=== PATIENT | male | born 1980 | race Caucasian/White ===

== ENCOUNTER 2019-09-18 10:40 | Emergency (ER) | payer OTHER ==
[~2019-09-18] VITALS: Ht 193 cm; Wt 104.3 kg
[~2019-09-18 10:40] MED LIST: DOCU100 PO; HYDACE5 PO; NAPR500 PO; OXYACE5T PO; POTCIT5 PO; RXOXYACE PO
== END 2019-09-18 12:57 | disposition home or self-care (01) ==
LOC: ER 10:40
DX: M25.561 Pain in right knee (principal); G89.29 Other chronic pain; F17.210 Nicotine dependence, cigarettes, uncomplicated
CPT/HCPCS: 73562-RT; 99283-25

== ENCOUNTER 2021-01-17 07:05 | Emergency (ER) | payer OTHER ==
[~2021-01-17] VITALS: Ht 182.9 cm; Wt 104.3 kg
[2021-01-17] MEDS ORDERED: PRED20 PO (08:26)
[2021-01-17] MEDS ORDERED: CYCL10 PO (08:26)
== END 2021-01-17 08:42 | disposition home or self-care (01) ==
LOC: ER 07:05
DX: S16.1XXA Strain of muscle, fascia and tendon at neck level, initial encounter (principal); M47.22 Other spondylosis with radiculopathy, cervical region; M50.121 Cervical disc disorder at C4-C5 level with radiculopathy; F17.200 Nicotine dependence, unspecified, uncomplicated; X58.XXXA Exposure to other specified factors, initial encounter
CPT/HCPCS: 72040; 96372; 99283-25; A9270; J1885

== ENCOUNTER 2022-07-13 16:35 | Emergency (ER) | payer OTHER ==
[~2022-07-13] VITALS: Ht 193 cm; Wt 110.2 kg
[~2022-07-13 16:35] MED LIST changes: +CYCL10 PO; +PRED20 PO
[2022-07-13 18:35] LABS: BASOPHILS ABSOLUTE AUTO 0.07 K/mm3 (0.00-0.23); BASOPHILS PERCENT AUTO 1 % (0-2); EOSINOPHILS ABSOLUTE AUTO 0.19 K/mm3 (0.00-0.68); EOSINOPHILS PERCENT AUTO 2 % (0-6); Hematocrit 40.8 % (37.0-53.0); Hemoglobin 13.4 g/dL (13.5-17.5); IMMATURE GRAN ABSOLUTE AUTO 0.04 K/mm3 (0.00-0.10); IMMATURE GRAN PERCENT AUTO 0 % (0-1); LYMPHOCYTES ABSOLUTE AUTO 2.14 K/mm3 (0.84-5.20); LYMPHOCYTES PERCENT AUTO 17 % (21-46); MONOCYTES ABSOLUTE AUTO 1.02 K/mm3 (0.16-1.47); MONOCYTES PERCENT AUTO 8 % (4-13); Mean Corpuscular HGB 29.7 pg (26.0-34.0); Mean Corpuscular HGB Conc 32.8 g/dL (31.5-36.5); Mean Corpuscular Volume 91 fL (80-100); Mean Platelet Volume 8.5 fL (9.1-12.4); NEUTROPHILS ABSOLUTE AUTO 8.85 K/mm3 (1.96-9.15); NEUTROPHILS PERCENT AUTO 72 % (41-73); Platelet Count 446 K/mm3 (150-400); RDW Coefficient Variation 13.6 % (11.7-14.2); RDW Standard Deviation 45.2 fL (35.1-46.3); Red Blood Cell Count 4.51 M/mm3 (4.30-5.90); White Blood Cell Count 12.31 K/mm3 (4.00-11.30)
[2022-07-13 19:00] LABS: Albumin, Blood 3.5 g/dL (3.4-5.0); Albumin/Globulin Ratio 0.9 (0.8-1.8); Bilirubin, Total 0.7 mg/dL (0.1-1.0); Calcium, Blood 8.7 mg/dL (8.5-10.1); Creatinine, Blood 0.81 mg/dL (0.60-1.20); Globulin, Blood 3.9 g/dL (2.2-4.0); Potassium, Blood 4.1 mmol/L (3.5-5.5); Total Protein, Blood 7.4 g/dL (6.4-8.2)
[2022-07-13] MEDS ORDERED: Bactrim Ds Tab1 EACH PO (22:11)
== END 2022-07-13 22:22 | disposition home or self-care (01) ==
LOC: ER 16:35
PROVIDERS: Student in an Organized Health Care Education/Training Program
DX: L03.115 Cellulitis of right lower limb (principal); Z79.52 Long term (current) use of systemic steroids
CPT/HCPCS: 80053; 83880; 85025; 93005; 93010; 93971; 99284-25; A9270

== ENCOUNTER 2022-10-27 20:53 | Inpatient (IN) | payer OTHER ==
[~2022-10-27] VITALS: Ht 193 cm; Wt 110.5 kg
[~2022-10-27 20:53] MED LIST changes: +Bactrim Ds Tab1 EACH PO
[2022-10-27] MEDS ORDERED: AMOX-CLAV 875-1 EAC5 PO (21:07)
[2022-10-27 21:57] LABS: BASOPHILS ABSOLUTE AUTO 0.06 K/mm3 (0.00-0.23); BASOPHILS PERCENT AUTO 1 % (0-2); EOSINOPHILS ABSOLUTE AUTO 0.05 K/mm3 (0.00-0.68); EOSINOPHILS PERCENT AUTO 1 % (0-6); Hemoglobin 14.2 g/dL (13.5-17.5); IMMATURE GRAN ABSOLUTE AUTO 0.05 K/mm3 (0.00-0.10); IMMATURE GRAN PERCENT AUTO 1 % (0-1); LYMPHOCYTES ABSOLUTE AUTO 1.52 K/mm3 (0.84-5.20); LYMPHOCYTES PERCENT AUTO 14 % (21-46); MONOCYTES PERCENT AUTO 14 % (4-13); Mean Corpuscular HGB 30.1 pg (26.0-34.0); Mean Corpuscular HGB Conc 33.8 g/dL (31.5-36.5); Mean Corpuscular Volume 89 fL (80-100); Mean Platelet Volume 8.9 fL (9.1-12.4); NEUTROPHILS ABSOLUTE AUTO 7.87 K/mm3 (1.96-9.15); NEUTROPHILS PERCENT AUTO 71 % (41-73); Platelet Count 328 K/mm3 (150-400); RDW Coefficient Variation 13.6 % (11.7-14.2); RDW Standard Deviation 44.7 fL (35.1-46.3); Red Blood Cell Count 4.72 M/mm3 (4.30-5.90); White Blood Cell Count 11.05 K/mm3 (4.00-11.30)
[2022-10-27 22:16] LABS: Albumin, Blood 3.3 g/dL (3.4-5.0); Albumin/Globulin Ratio 0.8 (0.8-1.8); Bilirubin, Total 0.3 mg/dL (0.1-1.0); Bun/Creatinine Ratio 13.9 (12.0-20.0); Calcium, Blood 8.7 mg/dL (8.5-10.1); Creatinine, Blood 1.15 mg/dL (0.60-1.20); Globulin, Blood 4.2 g/dL (2.2-4.0); Potassium, Blood 3.9 mmol/L (3.5-5.5); Total Protein, Blood 7.5 g/dL (6.4-8.2)
[2022-10-28 04:18] LABS: BASOPHILS ABSOLUTE AUTO 0.04 K/mm3 (0.00-0.23); BASOPHILS PERCENT AUTO 0 % (0-2); EOSINOPHILS ABSOLUTE AUTO 0.31 K/mm3 (0.00-0.68); EOSINOPHILS PERCENT AUTO 3 % (0-6); Hematocrit 41.6 % (37.0-53.0); Hemoglobin 13.8 g/dL (13.5-17.5); IMMATURE GRAN ABSOLUTE AUTO 0.07 K/mm3 (0.00-0.10); IMMATURE GRAN PERCENT AUTO 1 % (0-1); LYMPHOCYTES ABSOLUTE AUTO 1.05 K/mm3 (0.84-5.20); LYMPHOCYTES PERCENT AUTO 10 % (21-46); MONOCYTES ABSOLUTE AUTO 0.25 K/mm3 (0.16-1.47); MONOCYTES PERCENT AUTO 2 % (4-13); Mean Corpuscular HGB 30.1 pg (26.0-34.0); Mean Corpuscular HGB Conc 33.2 g/dL (31.5-36.5); Mean Corpuscular Volume 91 fL (80-100); NEUTROPHILS ABSOLUTE AUTO 9.34 K/mm3 (1.96-9.15); NEUTROPHILS PERCENT AUTO 84 % (41-73); Platelet Count 345 K/mm3 (150-400); RDW Coefficient Variation 13.7 % (11.7-14.2); Red Blood Cell Count 4.58 M/mm3 (4.30-5.90); White Blood Cell Count 11.06 K/mm3 (4.00-11.30)
[2022-10-28 04:38] LABS: Alanine Aminotransfer (ALT/SGP 50 U/L (12-78); Albumin, Blood 3.2 g/dL (3.4-5.0); Albumin/Globulin Ratio 0.8 (0.8-1.8); Alk Phos 79 U/L (50-136); Anion Gap 6 mmol/L (6-16); Aspartate Aminotrans (AST/SGOT 35 U/L (12-37); Bilirubin, Total 0.3 mg/dL (0.1-1.0); Blood Urea Nitrogen 19 mg/dL (8-24); Bun/Creatinine Ratio 20.3 (12.0-20.0); CO2, Blood 22 mmol/L (21-32); Calcium, Blood 8.5 mg/dL (8.5-10.1); Chloride, Blood 109 mmol/L (98-108); Creatinine, Blood 0.94 mg/dL (0.60-1.20); Globulin, Blood 4.2 g/dL (2.2-4.0); Glomerular Filtration Rate 103 (60-); Glucose, Blood 170 mg/dL (70-99); Potassium, Blood 4.1 mmol/L (3.5-5.5); Sodium, Blood 137 mmol/L (136-145); Total Protein, Blood 7.4 g/dL (6.4-8.2)
--- NOTE | 2022-10-28 05:47 | NUR ---
PT IS A&O4, IND IN THE ROOM, RA, VSS, NO COMPLAINTS OF PAIN, HOURLY ROUNDING AND FIRE IGNITION EDUCATION PROVIDED, CONTINUE POC
[2022-10-28 07:23] VITALS: BP 116/79
[2022-10-28 14:59] VITALS: BP 120/86
--- NOTE | 2022-10-28 17:22 | NUR ---
SHIFT SUMMARY: Pt remains A&O X3 this shift. Denies pain. VSS, afebrile. Receiving IV antibx as ordered. Independent with ADLs. Pt is current smoker, declines need for patch. Educated on ignition risk/ no smoking in hospital. Denies having assistive technology specialist or cigarettes here. Pt does have personal knife locked in his med drawer and agrees to return at discharge. No further needs id or verbalized at this time.
[2022-10-28 20:15] VITALS: BP 120/86
--- NOTE | 2022-10-29 04:21 | NUR ---
POWER BARKER OPERATOR SUMMARY VSS. ALERT AND ORIENTED X 4. IV ANTIBIOTICS INFUSING ORDERED - SEE MAR FOR DETAILS. HAS BEEN RESTING QUIETLY WITH FEW INTERRUPTIONS NOTED. UP AD CHRISTEN. CALL LIGHT IN REACH. WILL CONTINUE TO MONITOR.
--- NOTE | 2022-10-29 04:30 | NUR ---
RECEIVED IGNITION, FIRE, NO SMOKING INFO TEACHING EARLIER IN THE SHIFT PER STAFF.
[2022-10-29 04:52] VITALS: BP 132/84
--- NOTE | 2022-10-29 06:23 | NUR ---
PTOICED C/O PAIN AT IV SITE. NOTED SLIGHT SWELLING. IV DC'D AND PT REFUSED ANOTHER ONE PLACED. CALL LIGHT IN REACH
[2022-10-29 07:41] VITALS: BP 130/76
[2022-10-29] MEDS ORDERED: VISBIOME 112.51 EACH PO (10:42)
--- NOTE | 2022-10-29 11:17 | NUR ---
SHIFT/DISCHARGE SUMMARY: Pt remains A&O x3 this shift. Denies pain, VSS, Resp even nonlabored. Tolerating diet. Independent with ADLs. Decline restart on IV for am IV antibiotics. All discharge instructions reviewed with return verbal understanding. Pt belongings returned from locked drawer. Pt to lobby independently.
== END 2022-10-29 11:14 | disposition home or self-care (01) | DRG 872 ==
LOC: ER 20:53 → MEDS 20:54 → ENPENDDIS 10-29 09:46 → MEDS 10-29 11:14
PROVIDERS: Emergency Medicine; ADMIT Internal Medicine
DX: A41.9 Sepsis, unspecified organism (principal); L03.211 Cellulitis of face; L02.01 Cutaneous abscess of face; F17.210 Nicotine dependence, cigarettes, uncomplicated; Z79.2 Long term (current) use of antibiotics; Z88.1 Allergy status to other antibiotic agents; Z71.6 Tobacco abuse counseling
CPT/HCPCS: 36415; 70487; 71045; 80053; 83605; 84484; 85025; 87040; 93005; 93010; 96361; 96365-59; 96375-59; 99285-25; J0295; J1100; J1650; J1885; J2930; J3370; J7030; J7050; Q9967

== ENCOUNTER 2023-02-24 22:23 | Emergency (ER) | payer OTHER ==
[~2023-02-24] VITALS: Ht 190.5 cm; Wt 104.3 kg
[~2023-02-24 22:23] MED LIST changes: +AMOX-CLAV 875-1 EAC5 PO; +VISBIOME 112.51 EACH PO
[2023-02-25 00:02] LABS: Influenza A, PCR NEGATIVE (NEGATIVE); Influenza B, PCR NEGATIVE (NEGATIVE); Resp Syncytial Virus, PCR NEGATIVE (NEGATIVE)
[2023-02-25 00:05] LABS: SARS-Cov-2 (COVID-19) PCR, MMC POSITIVE (NEGATIVE)
[2023-02-25 00:25] VITALS: BP 142/87
== END 2023-02-25 00:29 | disposition home or self-care (01) ==
LOC: ER 22:23
PROVIDERS: Student in an Organized Health Care Education/Training Program
DX: U07.1 COVID-19 (principal); Z88.1 Allergy status to other antibiotic agents; F17.210 Nicotine dependence, cigarettes, uncomplicated
CPT/HCPCS: 0241U; 96361; 96374; 96375; 99283-25; J0780; J1200; J1885; J7030

== ENCOUNTER 2023-10-21 10:56 | Inpatient (IN) | payer OTHER ==
[~2023-10-21] VITALS: Ht 182.9 cm; Wt 105.5 kg
[~2023-10-21 10:56] MED LIST changes: +AMIODARONE HCL400 M2 PO; +JARDIANCE10 MG PO; +Lisinopril2.5 MG PO; +METO50ER PO; +NICO21TP TOP; +SPIR25 PO; +TORSE20 PO; +XARELTO20 MG PO; +Zithromax250 MG PO
[2023-10-21] MEDS ORDERED: Ketamine HCl 100 MG / ML 5ML Vial IV ONE ×2 (11:05→11:20)
[2023-10-21] MEDS ORDERED: NS 1,000 ML IV SCH ×2 (11:10→11:55)
[2023-10-21] MEDS ORDERED: Magnesium Sulf 2 GM/Water 50ML 50 ML IV ONE (11:10)
[2023-10-21 11:22] LABS: BASOPHILS ABSOLUTE AUTO 0.06 K/mm3 (0.00-0.23); BASOPHILS PERCENT AUTO 0 % (0-2); EOSINOPHILS ABSOLUTE AUTO 0.02 K/mm3 (0.00-0.68); EOSINOPHILS PERCENT AUTO 0 % (0-6); Hematocrit 43.7 % (37.0-53.0); Hemoglobin 14.4 g/dL (13.5-17.5); IMMATURE GRAN ABSOLUTE AUTO 0.14 K/mm3 (0.00-0.10); IMMATURE GRAN PERCENT AUTO 1 % (0-1); LYMPHOCYTES ABSOLUTE AUTO 0.43 K/mm3 (0.84-5.20); LYMPHOCYTES PERCENT AUTO 2 % (21-46); MONOCYTES ABSOLUTE AUTO 0.11 K/mm3 (0.16-1.47); MONOCYTES PERCENT AUTO 1 % (4-13); Mean Corpuscular HGB 30.1 pg (26.0-34.0); Mean Corpuscular Volume 91 fL (80-100); Mean Platelet Volume 10.4 fL (9.1-12.4); NEUTROPHILS ABSOLUTE AUTO 19.42 K/mm3 (1.96-9.15); NEUTROPHILS PERCENT AUTO 96 % (41-73); Platelet Count 240 K/mm3 (150-400); RDW Coefficient Variation 16.2 % (11.7-14.2); RDW Standard Deviation 54.2 fL (35.1-46.3); Red Blood Cell Count 4.79 M/mm3 (4.30-5.90); White Blood Cell Count 20.18 K/mm3 (4.00-11.30)
[2023-10-21 11:39] LABS: Albumin, Blood 2.8 g/dL (3.4-5.0); Bun/Creatinine Ratio 19.2 (12.0-20.0); Calcium, Blood 8.4 mg/dL (8.5-10.1); Creatinine, Blood 1.67 mg/dL (0.60-1.20); Globulin, Blood 2.7 g/dL (2.2-4.0); Potassium, Blood 4.2 mmol/L (3.5-5.5); Total Protein, Blood 5.5 g/dL (6.4-8.2)
[2023-10-21 11:41] LABS: BAND PERCENT MAN 4 % (0-8); BASOPHILS PERCENT MAN 0 % (0-2); EOSINOPHILS PERCENT MAN 0 % (0-6); LYMPHOCYTES PERCENT MAN 1 % (21-46); MONOCYTES PERCENT MAN 1 % (4-13); NEUTROPHILS ABSOLUTE MAN 19.77 K/mm3 (1.96-9.15); SEG NEUTROPHILS PERCENT MAN 94 % (41-73); TOTAL CELLS COUNTED 100
[2023-10-21] MEDS ORDERED: NS 500 ML IV SCH (12:35)
[2023-10-21] MEDS ORDERED: Calcium Gluconate 10% 2,000 MG in NS 50 ML IV ONE (12:40)
[2023-10-21] MEDS ORDERED: Lactated Ringer's 1,000 ML IV ONE (12:40)
[2023-10-21] MEDS ORDERED: CALCIUM GLUC IN NACL, ISO-OSM 100 ML IV ONE (13:20)
[2023-10-21] MEDS ORDERED: Midodrine 5 MG Tab PO SCH (14:00)
[2023-10-21] MEDS ORDERED: Acetaminophen 325 MG TABLET PO PRN (14:05)
[2023-10-21] MEDS ORDERED: Metoprolol Succinate 25 MG TABCR PO SCH (15:00)
[2023-10-21] MEDS ORDERED: Amiodarone HCl200 MG PO (15:32)
[2023-10-21 16:15] VITALS: BP 87/62
[2023-10-21 16:31] VITALS: BP 82/59
--- NOTE | 2023-10-21 17:31 | NUR ---
UPDATE PT ARRIVED TO UNIT FROM ED. PT ABLE TO STAND AND TRANSFER FROM [facility] TO BED. BP SOFT, BUT MAP 71. O2 SATS >90% ON RA. HR SINUS TACH LOW 100'S. PT DENIES ANY PAIN. PT DOES NOT HAVE ANY RECOLLECTION OF CARDIOVERSION IN THE ED. PT FALLING ASLEEP DURING ASSESSMENT. WHEN PT IS ASLEEP HE HAS SNORING RESPIRATIONS AND SATS DROP TO MID 80'S AT TIMES. RT CALLED AND CPAP PLACED ON PT. PT ORIENTED TO ROOM AND UNIT. PT STATES HE HAS NOT BEEN TAKING HIS HOME MEDICATIONS BECAUSE HE WENT TO PRISON AFTER LAST ADMISSION AND THEN HAD TROUBLE FOLLOWING UP WITH PRIMARY CARE. WILL CONTINUE TO MONITOR AND REPORT TO ONCOMING ARTURO
[2023-10-21 20:37] VITALS: BP 87/75
--- NOTE | 2023-10-21 21:42 | NUR ---
PATIENT SLEEPING BUT EASILY AROUSABLE. DENIES ANY WANTS OF NEEDS.
--- NOTE | 2023-10-21 21:46 | NUR ---
PATIENT WITH PAUSES IN RESPIRATORY RATE, HISTORY OF SLEEP APNES, REFUSING TO WEAR CPAP, " I GET TO CLAUSTROPHOBIC' O2 SAT STABLE.
[2023-10-22] VITALS (9 sets, daily range): BP systolic 85–1070; BP diastolic 63–111
[2023-10-22 04:26] LABS: Bun/Creatinine Ratio 25.3 (12.0-20.0); Calcium, Blood 8.3 mg/dL (8.5-10.1); Creatinine, Blood 1.66 mg/dL (0.60-1.20); Potassium, Blood 5.3 mmol/L (3.5-5.5)
[2023-10-22] MEDS ORDERED: Metoprolol Succinate 25 MG TABCR PO SCH (09:00)
--- NOTE | 2023-10-22 09:00 | NUR ---
UPDATE BP SOFT AND MIDODRINE ADMINISTERED PER EMAR. DR. WATTS CALLED AND OK TO GIVE 12.5 OF METOPROLOL TODAY. WILL CONTINUE TO MONITOR CLOSELY
[2023-10-22] MEDS ORDERED: Metoprolol Succinate 25 MG TABCR PO ONE (09:20)
[2023-10-22] MEDS ORDERED: STEGLATRO5 MG PO (10:16)
[2023-10-22] MEDS ORDERED: Rivaroxaban 10 MG Tab PO SCH (13:00)
[2023-10-22] MEDS ORDERED: Empagliflozin 10 MG TAB PO SCH (13:00)
--- NOTE | 2023-10-22 16:29 | NUR ---
SHIFT SUMMARY PT REMAINS ALERT AND ORIENTED. 02 SATS REMAIN ABOVE 90% ON RA. HR REMAINS NSR. BP REMAINS SOFT, BUT MAP REMAINS ABOVE 65. PT ASYMPTOMATIC. PT INDEPENDENT IN THE ROOM. PT DENIES ANY PAIN. WILL CONTINUE TO MONITOR AND REPORT TO ONCOMNIG RN.
--- NOTE | 2023-10-22 21:40 | NUR ---
ASSUMPTION OF CARE Pt resting in hospital bed, oriented x4, calm and cooperative. Spo2 maintained on room air, telemetry shows sinus rhythm with HR 80's, good BP with systolic> 100. Pt denies GI/ issues, requests orange juice which was provided. Pt able to reposition himself in bed, ambulatory with stand by assistance.
[2023-10-23] VITALS (8 sets, daily range): BP systolic 102–155; BP diastolic 73–87
[2023-10-23 04:47] LABS: Hematocrit 38.2 % (37.0-53.0); Hemoglobin 12.7 g/dL (13.5-17.5); Mean Corpuscular HGB 30.3 pg (26.0-34.0); Mean Corpuscular HGB Conc 33.2 g/dL (31.5-36.5); Mean Corpuscular Volume 91 fL (80-100); Mean Platelet Volume 11.5 fL (9.1-12.4); Platelet Count 216 K/mm3 (150-400); RDW Coefficient Variation 16.8 % (11.7-14.2); Red Blood Cell Count 4.19 M/mm3 (4.30-5.90); White Blood Cell Count 36.05 K/mm3 (4.00-11.30)
[2023-10-23 05:13] LABS: Albumin, Blood 2.6 g/dL (3.4-5.0); Albumin/Globulin Ratio 0.8 (0.8-1.8); Bilirubin, Total 0.8 mg/dL (0.1-1.0); Calcium, Blood 8.2 mg/dL (8.5-10.1); Creatinine, Blood 1.37 mg/dL (0.60-1.20); Globulin, Blood 3.2 g/dL (2.2-4.0); Potassium, Blood 4.8 mmol/L (3.5-5.5); Total Protein, Blood 5.8 g/dL (6.4-8.2)
--- NOTE | 2023-10-23 06:02 | NUR ---
SHIFT SUMMARY No acute events over night, pt remains oriented x4, rested well, remains on room air. Telemetry shows sinus rhythm throughout shift, BP's stable with systolics maintaining above 100. Pt denies any GI/ issues, tolerating PO intake.
[2023-10-23] MEDS ORDERED: N-Acetylcysteine 600 MG CAP PO SCH (08:00)
--- NOTE | 2023-10-23 08:10 | NUR ---
ASSUMED CARE / DR WATTS: REPORT RECEIVED FROM ARTURO SPRINGER. ASSUMED CARE OF THIS PT AT APPROX 0700. ON ASSESSMENT, THE PT IS AWAKE, A&O TO ALL. AMBULATORY IN ROOM W/ SBA FOR LINE MANAGEMENT. LS CLEAR T/O, PT ON RA W/ O2 SATS > 95%. MONITOR SHOWS SR W/ HR 70s, BP STABLE W/ MAP > 65, SBP LOW 100s. PT HAS NO GI COMPLAINTS AT THIS TIME. VOIDS URINE W/O DIFFICULTY USING URINAL. SKIN CONDITION OVERALL INTACT, PT REPOSITIONS SELF PRN FOR COMFORT. DR WATTS AT BEDSIDE THIS AM, DISCUSSING POC W/ PT. PLANS FOR ADDITIONAL TESTING TO DETERMINE CAUSE OF INCREASING WBC. IV ABX COVERAGE ORDERED. SEE ORDERS. WILL CONTINUE TO MONITOR & UPDATE NEEDED.
[2023-10-23 09:00] LABS: Source, Urine Clean Catch
[2023-10-23] MEDS ORDERED: CefTRIAXone Sodium 2,000 MG in NS 100 ML IV SCH (09:00)
[2023-10-23] MEDS ORDERED: NS 500 ML IV SCH (09:00)
[2023-10-23 09:07] LABS: Appearance, Urine Clear (Clear); Bilirubin, Urine Neg (Neg); Blood, Urine Neg (Neg); Color, Urine Yellow (P-Yellow); Glucose Qualitative, Urine 3+ (Neg); Ketones, Urine Neg (Neg); Leukocyte Esterase, Urine Neg (Neg); Nitrite, Urine Neg (Neg); Protein, Urine Neg (Neg); Urobilinogen, Urine 1+ (Normal); pH, Urine 6.5 (5.0-8.0)
--- NOTE | 2023-10-23 10:25 | NUR ---
DR WATTS: THIS RN HAS CONTACTED PROVIDER REGARDING ORDERED DOSE OF METOPROLOL THIS AM. CALL TO CONFIRM THAT INCREASED DOSE OF METOPROLOL IS TO BE GIVEN IN ADDITION TO ORDERED DOSE OF MIDODRINE. PROVIDER STS THAT THIS IS CORRECT & THIS RN HAS GIVEN MED PER EMAR AT THIS TIME. VS RECHECKED & BP REMAINS STABLE.
--- NOTE | 2023-10-23 18:09 | NUR ---
SHIFT SUMMARY: NO ACUTE CHANGES SINCE PRIOR UPDATES. PT REMAINS A&O, INDEPENDENT IN ROOM W/ MIN ASSIST PRN FOR LINE MANAGEMENT. LS CLEAR T/O, PT ON RA W/ O2 SATS > 95%. MONITOR SHOWS SR W/ HR 70s, BP STABLE. DENIES GI COMPLAINTS. IS TOLERATING PO INTAKE WELL. VOIDS W/O DIFFICULTY USING URINAL. SKIN CONDITION OVERALL INTACT, PT REPOSITIONS SELF PRN FOR COMFORT. WILL CONTINUE TO MONITOR & REPORT OFF TO ONCOMING RN.
[2023-10-23] MEDS ORDERED: Lactobacil 2-S.Thermo-Bifido 1 1 Cap PO SCH (21:00)
[2023-10-23] MEDS ORDERED: Calcium Carbonate 500 MG Tab Chew PO PRN (22:00)
--- NOTE | 2023-10-23 22:02 | NUR ---
PHYSICIAN COMMUNICATION CONTACTED LAURA BILL TO NOFITY HIM THAT THE PATIENT IS EXPERIENCING HEART BURN AND NAUSEA. HE ORDERED 4 MG ZOFRAN IV Q4 PRN AND TUMS 1-2 GRAMS Q8 HOURS NEEDED.
[2023-10-23] MEDS ORDERED: Ondansetron HCl 2 MG / ML 2ML Vial IV PRN (22:05)
[2023-10-24] VITALS: BP 115/75
[2023-10-24 04:55] VITALS: BP 127/90
[2023-10-24 04:55] LABS: BASOPHILS ABSOLUTE AUTO 0.12 K/mm3 (0.00-0.23); BASOPHILS PERCENT AUTO 1 % (0-2); EOSINOPHILS ABSOLUTE AUTO 0.11 K/mm3 (0.00-0.68); EOSINOPHILS PERCENT AUTO 1 % (0-6); Hematocrit 42.8 % (37.0-53.0); Hemoglobin 13.7 g/dL (13.5-17.5); IMMATURE GRAN PERCENT AUTO 1 % (0-1); LYMPHOCYTES ABSOLUTE AUTO 2.74 K/mm3 (0.84-5.20); LYMPHOCYTES PERCENT AUTO 13 % (21-46); MONOCYTES ABSOLUTE AUTO 1.07 K/mm3 (0.16-1.47); MONOCYTES PERCENT AUTO 5 % (4-13); Mean Corpuscular HGB 29.3 pg (26.0-34.0); Mean Corpuscular Volume 92 fL (80-100); Mean Platelet Volume 11.3 fL (9.1-12.4); NEUTROPHILS ABSOLUTE AUTO 16.49 K/mm3 (1.96-9.15); NEUTROPHILS PERCENT AUTO 80 % (41-73); NRBC ABSOLUTE 0.03 K/mm3 (0.00-0.02); NRBC Auto 0.1 /100 WBC (0.0-0.2); Platelet Count 264 K/mm3 (150-400); RDW Coefficient Variation 16.6 % (11.7-14.2); RDW Standard Deviation 55.8 fL (35.1-46.3); Red Blood Cell Count 4.67 M/mm3 (4.30-5.90); White Blood Cell Count 20.73 K/mm3 (4.00-11.30)
[2023-10-24 05:32] LABS: Bun/Creatinine Ratio 22.2 (12.0-20.0); Creatinine, Blood 1.17 mg/dL (0.60-1.20); Potassium, Blood 5.2 mmol/L (3.5-5.5)
--- NOTE | 2023-10-24 06:34 | NUR ---
SHIFT SUMMARY PATIENT ALERT AND ORIENTED X4. MEDICATED PER EMAR FOR NAUSEA AND HEART BURN. HAD NO COMPLAINTS OF PAIN OR SHORTNESS OF BREATH. ON ROOM AIR WITH SPO2 >90%. VITAL SIGNS STABLE. NO ACUTE ISSUES NOTED OVERNIGHT. WILL CONTINUE TO MONITOR. CALL LIGHT WITHIN REACH.
[2023-10-24 07:53] VITALS: BP 145/114
[2023-10-24] MEDS ORDERED: Lidocaine 2% Viscous Soln 20 ML,Nystatin 100,000 Unit/ml Susp 20 ML,Mag Hydrox/Al Hydro... MT PRN (08:35)
[2023-10-24] MEDS ORDERED: Lisinopril 5 MG Tab PO SCH (09:00)
[2023-10-24 09:53] VITALS: BP 127/94
[2023-10-24] MEDS ORDERED: Torsemide 10 MG TAB PO SCH (10:00)
[2023-10-24 11:03] VITALS: BP 118/93
[2023-10-24] MEDS ORDERED: JARDIANCE10 MG PO (11:24)
[2023-10-24] MEDS ORDERED: Calcium Carbon500 MG PO (11:25)
[2023-10-24] MEDS ORDERED: NYSTATIN100000 U10 PO (11:25)
[2023-10-24] MEDS ORDERED: METO25ER PO (11:26)
[2023-10-24] MEDS ORDERED: PREDNISOLO15 MG/5 ML MT (11:26)
[2023-10-24] MEDS ORDERED: TORS10 PO (11:27)
--- NOTE | 2023-10-24 12:52 | NUR ---
DISCHARGE SUMMARY PT A&Ox4, COMMUNICATES NEEDS APPROPRIATELY. BP STABLES, SINUS 70's, DENIES CP/PRESSURE. SpO2> 92% RA, DENIES SOB. IND IN ROOM. CONTINENT OF URINE AND BOWEL. DISCHARGE INSTRUCTIONS PROVIDED, SISTER AT BEDSIDE. ALL PT BELONGINGS GATHERED. AT APPROXIMATELY 1245 PT TAKEN OUT VIA WHEELCHAIR BY CLINICAL STAFF MEMBER WITH SISTER AND ALL PT BELONGINGS.
== END 2023-10-24 13:55 | disposition home or self-care (01) | DRG 309 ==
LOC: ER 10:56 → PCU 14:17
PROVIDERS: Emergency Medicine; ADMIT Internal Medicine
PROC: 5A2204Z Restoration of Cardiac Rhythm, Single (ICD-10-PCS; principal; 2023-10-21)
DX: I48.0 Paroxysmal atrial fibrillation (principal); I50.22 Chronic systolic (congestive) heart failure; N17.9 Acute kidney failure, unspecified; G47.33 Obstructive sleep apnea (adult) (pediatric); I11.0 Hypertensive heart disease with heart failure; I95.9 Hypotension, unspecified; D72.829 Elevated white blood cell count, unspecified; F15.10 Other stimulant abuse, uncomplicated; Z91.148 Patient's other noncompliance with medication regimen for other reason; Z88.1 Allergy status to other antibiotic agents; I73.9 Peripheral vascular disease, unspecified; Z71.6 Tobacco abuse counseling; Z79.811 Long term (current) use of aromatase inhibitors; Z79.01 Long term (current) use of anticoagulants; Z79.899 Other long term (current) drug therapy; F10.90 Alcohol use, unspecified, uncomplicated; Z87.891 Personal history of nicotine dependence
CPT/HCPCS: 36415; 71046; 74177; 76705; 80048; 80053; 81003; 82570; 82947; 83880; 84300; 85025; 85027; 87040; 92960; 93005; 93010; 93308; 93321; 94660; 94762; 96365-59; 96375-59; 99152; 99285-25; A9270; J0612; J0696; J2405; J3475; J7030; J7040; J7120; Q9967

== ENCOUNTER → 2023-10-29 | Outpatient (CLI) | payer OTHER ==
[~2023-10-29] MED LIST changes: +Amiodarone HCl200 MG PO; +Calcium Carbon500 MG PO; +METO25ER PO; +NYSTATIN100000 U10 PO; +PREDNISOLO15 MG/5 ML MT; +STEGLATRO5 MG PO; +TORS10 PO
[2023-10-30 09:54] LABS: BASOPHILS ABSOLUTE AUTO 0.15 K/mm3 (0.00-0.23); BASOPHILS PERCENT AUTO 1 % (0-2); EOSINOPHILS ABSOLUTE AUTO 0.49 K/mm3 (0.00-0.68); EOSINOPHILS PERCENT AUTO 5 % (0-6); Hemoglobin 18.1 g/dL (13.5-17.5); IMMATURE GRAN ABSOLUTE AUTO 0.14 K/mm3 (0.00-0.10); IMMATURE GRAN PERCENT AUTO 1 % (0-1); LYMPHOCYTES ABSOLUTE AUTO 3.41 K/mm3 (0.84-5.20); LYMPHOCYTES PERCENT AUTO 31 % (21-46); MONOCYTES ABSOLUTE AUTO 1.17 K/mm3 (0.16-1.47); MONOCYTES PERCENT AUTO 11 % (4-13); Mean Corpuscular HGB 29.5 pg (26.0-34.0); Mean Corpuscular HGB Conc 32.8 g/dL (31.5-36.5); Mean Corpuscular Volume 90 fL (80-100); Mean Platelet Volume 10.2 fL (9.1-12.4); NEUTROPHILS ABSOLUTE AUTO 5.53 K/mm3 (1.96-9.15); NEUTROPHILS PERCENT AUTO 51 % (41-73); Platelet Count 434 K/mm3 (150-400); RDW Coefficient Variation 16.5 % (11.7-14.2); Red Blood Cell Count 6.13 M/mm3 (4.30-5.90); White Blood Cell Count 10.89 K/mm3 (4.00-11.30)
[2023-10-30 09:55] LABS: Hematocrit 55.1 % (37.0-53.0)
[2023-10-30 10:10] LABS: Albumin, Blood 3.4 g/dL (3.4-5.0); Albumin/Globulin Ratio 0.8 (0.8-1.8); Bilirubin, Total 0.5 mg/dL (0.1-1.0); Bun/Creatinine Ratio 19.8 (12.0-20.0); Calcium, Blood 8.7 mg/dL (8.5-10.1); Creatinine, Blood 1.06 mg/dL (0.60-1.20); Globulin, Blood 4.3 g/dL (2.2-4.0); Potassium, Blood 5.3 mmol/L (3.5-5.5); Total Protein, Blood 7.7 g/dL (6.4-8.2)
== END ==
LOC: LAB 16:45 → LAB SHORT 16:45
PROVIDERS: Student in an Organized Health Care Education/Training Program
DX: I50.9 Heart failure, unspecified (principal)
CPT/HCPCS: 80053; 85025

== ENCOUNTER 2023-12-14 22:18 | Inpatient (IN) | payer OTHER ==
[~2023-12-14] VITALS: Ht 190.5 cm; Wt 104.4 kg
[2023-12-14] MEDS ORDERED: Metoprolol Tartrate 1 MG/ML 5 ML VIAL IV ONE ×2 (22:45→23:00)
[2023-12-14 22:53] LABS: BASOPHILS ABSOLUTE AUTO 0.09 K/mm3 (0.00-0.23); BASOPHILS PERCENT AUTO 1 % (0-2); EOSINOPHILS ABSOLUTE AUTO 0.19 K/mm3 (0.00-0.68); EOSINOPHILS PERCENT AUTO 2 % (0-6); Hematocrit 39.6 % (37.0-53.0); Hemoglobin 13.3 g/dL (13.5-17.5); IMMATURE GRAN ABSOLUTE AUTO 0.04 K/mm3 (0.00-0.10); IMMATURE GRAN PERCENT AUTO 0 % (0-1); LYMPHOCYTES ABSOLUTE AUTO 2.92 K/mm3 (0.84-5.20); LYMPHOCYTES PERCENT AUTO 25 % (21-46); MONOCYTES ABSOLUTE AUTO 1.17 K/mm3 (0.16-1.47); MONOCYTES PERCENT AUTO 10 % (4-13); Mean Corpuscular HGB Conc 33.6 g/dL (31.5-36.5); Mean Corpuscular Volume 89 fL (80-100); NEUTROPHILS ABSOLUTE AUTO 7.37 K/mm3 (1.96-9.15); NEUTROPHILS PERCENT AUTO 63 % (41-73); Platelet Count 357 K/mm3 (150-400); RDW Standard Deviation 49.5 fL (35.1-46.3); Red Blood Cell Count 4.43 M/mm3 (4.30-5.90); White Blood Cell Count 11.78 K/mm3 (4.00-11.30)
[2023-12-14 23:06] LABS: Alanine Aminotransfer (ALT/SGP 71 U/L (12-78); Albumin, Blood 3.6 g/dL (3.4-5.0); Alk Phos 108 U/L (50-136); Anion Gap 11 mmol/L (3-11); Aspartate Aminotrans (AST/SGOT 23 U/L (12-37); Bilirubin, Total 0.4 mg/dL (0.1-1.0); Blood Urea Nitrogen 22 mg/dL (8-24); Bun/Creatinine Ratio 23.2 (12.0-20.0); CO2, Blood 23 mmol/L (21-32); Calcium, Blood 8.6 mg/dL (8.5-10.1); Chloride, Blood 111 mmol/L (98-108); Creatinine, Blood 0.95 mg/dL (0.60-1.20); Globulin, Blood 3.7 g/dL (2.2-4.0); Glomerular Filtration Rate 101 (60-); Glucose, Blood 121 mg/dL (70-99); Sodium, Blood 141 mmol/L (136-145); Total Protein, Blood 7.3 g/dL (6.4-8.2)
[2023-12-15] VITALS (13 sets, daily range): BP systolic 89–116; BP diastolic 61–91
[2023-12-15] MEDS ORDERED: Aspirin 325 MG Tab PO ONE (00:05)
[2023-12-15] MEDS ORDERED: METO50ER PO (02:12)
[2023-12-15] MEDS ORDERED: TORS10 PO (02:13)
[2023-12-15] MEDS ORDERED: Metoprolol Tartrate 1 MG/ML 5 ML VIAL IV ONE (03:00)
[2023-12-15] MEDS ORDERED: Metoprolol Tartrate 50 MG Tab PO SCH (08:00)
[2023-12-15] MEDS ORDERED: Rivaroxaban 10 MG Tab PO SCH (09:00)
[2023-12-15] MEDS ORDERED: Empagliflozin 10 MG TAB PO SCH (09:00)
[2023-12-15] MEDS ORDERED: Torsemide 10 MG TAB PO SCH (09:00)
[2023-12-15] MEDS ORDERED: Spironolactone 25 MG Tab PO SCH (09:00)
[2023-12-15] MEDS ORDERED: Enoxaparin 40 MG/0.4 ML SYR SC SCH (09:00)
--- NOTE | 2023-12-15 09:00 | NUR ---
ARRIVAL TO PCU 19 PT A&Ox4, CALLS AND COMMUNICATES NEEDS APPROPRIATELY. PT TRANSFERED FROM ER [facility] TO HOSPITAL BED IND. PT ARRIVED ON DILT gtt AT 5mg/HR, AFIB 80's, BP STABLE, DENIES SCP/PRESSURE. SpO2> 92% RA, DENIES SOB. IND IN ROOM. ORIENTED TO CALL LIGHT/UNIT. BED IN LOWEST POSITION, CALL LIGHT IN REACH.
[2023-12-15] MEDS ORDERED: ALDACTONE25 MG PO (10:13)
[2023-12-15] MEDS ORDERED: Amiodarone HCl 200 MG Tab PO SCH (12:20)
[2023-12-15] MEDS ORDERED: Acetaminophen 325 MG TABLET PO PRN (12:55)
[2023-12-15] MEDS ORDERED: Nicotine Polacrilex 2 MG Gum PO PRN (12:55)
[2023-12-15 16:10] LABS: U Amphetamine Screen Not Detected; U Barbituate Screen Not Detected; U Benzodiazapine Screen Not Detected; U Buprenorphine Screen Not Detected; U Cannabinoids Screen Not Detected; U Cocaine Screen Not Detected; U Methadone Screen Not Detected; U Methamphetamine Screen Not Detected; U Opiates Screen Not Detected; U Oxycodone Screen Not Detected; U Phencyclidine Screen Not Detected
--- NOTE | 2023-12-15 17:56 | NUR ---
SHIFT SUMMARY SEE PREVIOUS NOTE A&Ox4, CALLS AND COMMUNICATES NEEDS APPROPRIATELY. BP STABLE, AFIB 80's, DENIES CP/PRESSURE. SpO2> 92% RA, DENIES SOB. IND IN ROOM. NO C/O PAIN. DISCUSSED PLAN OF CARE WITH PT AND PTs SIGNIFICANT OTHER. NO OTHER EVENTS, WILL REPORT TO ONCOMING RN.
[2023-12-15] MEDS ORDERED: Propofol 10mg/ml 20 ml Vial (Procedural) IV ONE (18:13)
[2023-12-16 04:02] LABS: BASOPHILS PERCENT AUTO 1 % (0-2); EOSINOPHILS ABSOLUTE AUTO 0.29 K/mm3 (0.00-0.68); EOSINOPHILS PERCENT AUTO 3 % (0-6); Hematocrit 40.7 % (37.0-53.0); Hemoglobin 13.7 g/dL (13.5-17.5); IMMATURE GRAN ABSOLUTE AUTO 0.04 K/mm3 (0.00-0.10); IMMATURE GRAN PERCENT AUTO 0 % (0-1); LYMPHOCYTES ABSOLUTE AUTO 3.02 K/mm3 (0.84-5.20); LYMPHOCYTES PERCENT AUTO 28 % (21-46); MONOCYTES ABSOLUTE AUTO 0.81 K/mm3 (0.16-1.47); MONOCYTES PERCENT AUTO 7 % (4-13); Mean Corpuscular HGB 30.2 pg (26.0-34.0); Mean Corpuscular HGB Conc 33.7 g/dL (31.5-36.5); Mean Corpuscular Volume 90 fL (80-100); Mean Platelet Volume 9.9 fL (9.1-12.4); NEUTROPHILS ABSOLUTE AUTO 6.74 K/mm3 (1.96-9.15); NEUTROPHILS PERCENT AUTO 61 % (41-73); Platelet Count 388 K/mm3 (150-400); RDW Coefficient Variation 15.2 % (11.7-14.2); RDW Standard Deviation 50.2 fL (35.1-46.3); Red Blood Cell Count 4.53 M/mm3 (4.30-5.90)
[2023-12-16 04:12] VITALS: BP 111/83
[2023-12-16 04:22] LABS: Albumin, Blood 3.5 g/dL (3.4-5.0); Albumin/Globulin Ratio 0.9 (0.8-1.8); Bilirubin, Total 0.5 mg/dL (0.1-1.0); Bun/Creatinine Ratio 22.7 (12.0-20.0); Calcium, Blood 8.9 mg/dL (8.5-10.1); Creatinine, Blood 0.84 mg/dL (0.60-1.20); Globulin, Blood 3.7 g/dL (2.2-4.0); Potassium, Blood 4.3 mmol/L (3.5-5.5); Total Protein, Blood 7.2 g/dL (6.4-8.2)
[2023-12-16 07:19] VITALS: BP 106/80
[2023-12-16] MEDS ORDERED: Metoprolol Succinate 50 MG TABCR PO SCH ×2 (08:00→20:00)
[2023-12-16] MEDS ORDERED: buPROPion HCL 150 MG TAB.SR.12H PO SCH (10:00)
[2023-12-16 12:00] VITALS: BP 102/71
[2023-12-16 15:44] VITALS: BP 102/69
--- NOTE | 2023-12-16 17:51 | NUR ---
SHIFT SUMMARY A&Ox4, CALLS AND COMMUNICATES NEEDS APPROPRIATELY. BP STABLE, AFIB 90-110's, UP TO 150's WITH ACTIVITY, DENIES CP/PRESSURE. SpO2> 92% RA, DENIES SOB. IND IN ROOM. NO C/O PAIN. PT IS LOOKING FORWARD TO CARDIOVERSION TOMORROW. NO OTHER EVENTS, WILL REPORT TO ONCOMING RN.
[2023-12-16 19:41] VITALS: BP 102/81
--- NOTE | 2023-12-16 22:34 | NUR ---
ASSUMPTION OF CARE THIS RN ASSUMED CARE OF THIS PT AT 1900. AFIB RVR: PT WAS ADMITTED FOR AFIB W/ RVR. HR ACCELERATES TO 150'S WITH EXERTION. MEDICATIONS CHANGES WERE MADE PER CARDIOLOGY TODAY. HR RESTING @ 90'S CURRENTLY. PT WILL GET JAIME W/ CARDIOVERSION 12/16. NPO AT MIDNIGHT TONIGHT.
[2023-12-17 00:04] VITALS: BP 87/70
[2023-12-17 03:54] LABS: BASOPHILS PERCENT AUTO 1 % (0-2); EOSINOPHILS ABSOLUTE AUTO 0.26 K/mm3 (0.00-0.68); EOSINOPHILS PERCENT AUTO 2 % (0-6); Hematocrit 41.4 % (37.0-53.0); Hemoglobin 13.9 g/dL (13.5-17.5); IMMATURE GRAN ABSOLUTE AUTO 0.05 K/mm3 (0.00-0.10); IMMATURE GRAN PERCENT AUTO 0 % (0-1); LYMPHOCYTES ABSOLUTE AUTO 3.38 K/mm3 (0.84-5.20); LYMPHOCYTES PERCENT AUTO 30 % (21-46); MONOCYTES PERCENT AUTO 7 % (4-13); Mean Corpuscular HGB Conc 33.6 g/dL (31.5-36.5); Mean Corpuscular Volume 89 fL (80-100); Mean Platelet Volume 9.7 fL (9.1-12.4); NEUTROPHILS ABSOLUTE AUTO 6.61 K/mm3 (1.96-9.15); NEUTROPHILS PERCENT AUTO 59 % (41-73); Platelet Count 412 K/mm3 (150-400); RDW Standard Deviation 49.1 fL (35.1-46.3); Red Blood Cell Count 4.63 M/mm3 (4.30-5.90)
[2023-12-17 04:15] LABS: Albumin, Blood 3.4 g/dL (3.4-5.0); Albumin/Globulin Ratio 0.9 (0.8-1.8); Bilirubin, Total 0.6 mg/dL (0.1-1.0); Bun/Creatinine Ratio 24.8 (12.0-20.0); Calcium, Blood 8.6 mg/dL (8.5-10.1); Creatinine, Blood 0.85 mg/dL (0.60-1.20); Globulin, Blood 3.8 g/dL (2.2-4.0); Potassium, Blood 4.4 mmol/L (3.5-5.5); Total Protein, Blood 7.2 g/dL (6.4-8.2)
[2023-12-17 04:34] VITALS: BP 96/75
--- NOTE | 2023-12-17 06:37 | NUR ---
SHIFT SUMMARY PT HAD AN UNEVENTFUL NIGHT. NPO SINCE MIDNIGHT. HR APPEARS BETTER CONTROLLED THIS SHIFT, RATE 80'S - 100'S. NO ACUTE CHANGES OERNIGHT.
[2023-12-17 08:04] VITALS: BP 111/98
--- NOTE | 2023-12-17 08:37 | NUR ---
AM NOTE... ASSUMED CARE OF PT AT 0700. PT IS A&Ox4 AND IND IN THE ROOM. PT IS NPO FOR JAIME/CARDIOVERSION TODAY. PT IS IN AFIB IN THE 80'S-90'S BP IS STABLE. PT DENIES CHEST PAIN/PRESSURE. HE IS ON RA WITH O2 SATS>95%. CALL LIGHT IN REACH WILL CONTINUE TO MONITOR.
[2023-12-17 11:39] VITALS: BP 96/77
[2023-12-17 14:12] VITALS: BP 94/74
[2023-12-17] MEDS ORDERED: NS 1,000 ML IV ONE ×2 (15:09→16:30)
[2023-12-17] MEDS ORDERED: Benzocaine Oral Spray 0.5ML UD ONE (15:27)
[2023-12-17] MEDS ORDERED: Benzocaine Oral Spray 0.5ML UD MT ONE (16:30)
--- NOTE | 2023-12-17 16:40 | NUR ---
PROCEDURE NOTE: PT CONSENTED FOR JAIME WITH CADIOVERSION WITH ANESTHESIA. CONSENT OBTAINED BY DR OZUNA. ANESTHESIA PERFORMED BY DR. MJ MUNSON. TIME PERFORMED AT 1550. SCOPE IN AT 1601. SCOPE OUT AT 1604. PT CADIOVERTED WITH 200J/SYNCH AT 1606. PT CONVERTED TO SINUS RHYTHM SUCCESSFULLY , POST EKG COMPLETED. CARE OF PT ASSUMED FROM ANESTHESIOLOGIST AT 1615. PT WOKE UP AND WAS AWAKE AND ALERT AT 1620. VSS. SATS >90% ON RA. BLANTON RN AT BEDSIDE FOR PROCEDURE AND GIVEN ADDITIONAL REPORT AT 1630.
[2023-12-17] MEDS ORDERED: LOSA25 PO (17:06)
[2023-12-17] MEDS ORDERED: Amiodarone HCl200 MG PO (17:06)
--- NOTE | 2023-12-17 17:45 | NUR ---
SHIFT SUMMARY/DISCHARGE... PT HAD JAIME/CARDIOVERSION THAT STARTED AT 1600, JAIME WAS NEGATIVE FOR ANY THROMUBS, PT WAS CARDIOVERTED AT 200JLS ONCE WITH A CONVERSION FROM AFIB IN THE 100'S-110'S TO SR IN THE 70'S-80'S BP STABLE. PT WOKE FROM SEDATION AND WAS A&0x4. VS CONTINUED TO BE STABLE. DR NIXON AT THE BEDSIDE TO DISCHARGE PT. PT'S NEW MEDICATIONS WERE SENT TO HIS PHARMACY OF CHOICE, NEW MEDICATED EDUCATION PROVIDED IN WRITTEN AND VERBAL FORMAT. ALL PT'S QUESTIONS WERE ANSWERED TO HIS SATISFACTION PER THE PT. ALL PT'S BELONGINGS WERE PACKED FOR THE PT. PT'S IV REMOVED WNL.
[2023-12-17 18:29] VITALS: BP 94/74
== END 2023-12-17 18:18 | disposition home or self-care (01) | DRG 281 ==
LOC: ER 22:18 → ERHOLD 22:19 → PCU 22:19 → EDBEDREQ 12-15 00:35 → PCU 12-15 08:39
PROVIDERS: Student in an Organized Health Care Education/Training Program; ADMIT Family Medicine
PROC: 5A2204Z Restoration of Cardiac Rhythm, Single (ICD-10-PCS; principal; 2023-12-17)
DX: I48.19 Other persistent atrial fibrillation (principal); I50.22 Chronic systolic (congestive) heart failure; I21.A1 Myocardial infarction type 2; Z59.01 Sheltered homelessness; I42.7 Cardiomyopathy due to drug and external agent; G47.33 Obstructive sleep apnea (adult) (pediatric); I10 Essential (primary) hypertension; J44.9 Chronic obstructive pulmonary disease, unspecified; F15.10 Other stimulant abuse, uncomplicated; I95.9 Hypotension, unspecified; I73.9 Peripheral vascular disease, unspecified; Z88.8 Allergy status to other drugs, medicaments and biological substances; Z79.01 Long term (current) use of anticoagulants; Z79.84 Long term (current) use of oral hypoglycemic drugs; Z72.0 Tobacco use
CPT/HCPCS: 36415; 71046; 80053; 83735; 83880; 84443; 84484; 85025; 93005; 93010; 93312; 93325; 96365; 96366; 96375; 99285-25; A9270; G0378; J2704; J7030

== ENCOUNTER 2024-02-09 16:34 | Emergency (ER) | payer OTHER ==
[~2024-02-09] VITALS: Ht 193 cm; Wt 99.8 kg
[~2024-02-09 16:34] MED LIST changes: +ALDACTONE25 MG PO; +LOSA25 PO
[2024-02-09 17:49] LABS: BASOPHILS ABSOLUTE AUTO 0.08 K/mm3 (0.00-0.23); BASOPHILS PERCENT AUTO 1 % (0-2); EOSINOPHILS ABSOLUTE AUTO 0.23 K/mm3 (0.00-0.68); EOSINOPHILS PERCENT AUTO 2 % (0-6); Hemoglobin 14.3 g/dL (13.5-17.5); IMMATURE GRAN ABSOLUTE AUTO 0.02 K/mm3 (0.00-0.10); IMMATURE GRAN PERCENT AUTO 0 % (0-1); LYMPHOCYTES ABSOLUTE AUTO 2.86 K/mm3 (0.84-5.20); LYMPHOCYTES PERCENT AUTO 29 % (21-46); MONOCYTES ABSOLUTE AUTO 0.98 K/mm3 (0.16-1.47); MONOCYTES PERCENT AUTO 10 % (4-13); Mean Corpuscular HGB 31.5 pg (26.0-34.0); Mean Corpuscular HGB Conc 33.3 g/dL (31.5-36.5); Mean Corpuscular Volume 95 fL (80-100); Mean Platelet Volume 10.6 fL (9.1-12.4); NEUTROPHILS ABSOLUTE AUTO 5.87 K/mm3 (1.96-9.15); NEUTROPHILS PERCENT AUTO 58 % (41-73); Platelet Count 400 K/mm3 (150-400); RDW Coefficient Variation 15.3 % (11.7-14.2); RDW Standard Deviation 53.2 fL (35.1-46.3); Red Blood Cell Count 4.54 M/mm3 (4.30-5.90); White Blood Cell Count 10.04 K/mm3 (4.00-11.30)
[2024-02-09 18:12] LABS: Albumin, Blood 2.8 g/dL (3.4-5.0); Bilirubin, Total 0.6 mg/dL (0.1-1.0); Bun/Creatinine Ratio 26.1 (12.0-20.0); Calcium, Blood 8.2 mg/dL (8.5-10.1); Creatinine, Blood 1.11 mg/dL (0.60-1.20); Globulin, Blood 2.8 g/dL (2.2-4.0); Potassium, Blood 4.3 mmol/L (3.5-5.5); Total Protein, Blood 5.6 g/dL (6.4-8.2)
[2024-02-09] MEDS ORDERED: Metoprolol Tartrate 1 MG/ML 5 ML VIAL IV ONE (19:25)
[2024-02-09 19:26] LABS: Source, Urine Clean Catch
[2024-02-09 19:29] LABS: Appearance, Urine Clear (Clear); Bilirubin, Urine Neg (Neg); Blood, Urine 4+ (Neg); Color, Urine Yellow (P-Yellow); Glucose Qualitative, Urine Neg (Neg); Ketones, Urine Neg (Neg); Leukocyte Esterase, Urine Neg (Neg); Nitrite, Urine Neg (Neg); Protein, Urine 2+ (Neg); Specific Gravity, Urine 1.025 (1.003-1.022); Urobilinogen, Urine NORM (Normal)
[2024-02-09 19:35] LABS: Bacteria Not Seen /hpf; Squamous Epithelial Cells Rare /hpf (Few); White Blood Cells, Urine 0-2 /hpf (0-5)
[2024-02-09] MEDS ORDERED: Tamsulosin HCl 0.4 MG Cap PO ONE (20:15)
[2024-02-09] MEDS ORDERED: RX Prepack 6 Tabs Oxycodone 5mg UD ONE (20:15)
[2024-02-09 20:30] VITALS: BP 97/81
== END 2024-02-09 20:50 | disposition home or self-care (01) ==
LOC: ER 16:34
PROVIDERS: Student in an Organized Health Care Education/Training Program
DX: R10.9 Unspecified abdominal pain (principal); R31.9 Hematuria, unspecified; Z79.899 Other long term (current) drug therapy; G47.33 Obstructive sleep apnea (adult) (pediatric); Z87.891 Personal history of nicotine dependence
CPT/HCPCS: 71046; 80053; 81001; 83880; 85025; 93005; 93010; 96374; 99284-25; A9270

== ENCOUNTER 2024-02-25 09:54 | Emergency (ER) | payer OTHER ==
[~2024-02-25] VITALS: Ht 177.8 cm; Wt 113.4 kg
--- NOTE | 2024-02-25 11:10 | NUR ---
After receiving a request for spiritual care, I met with patient's mom, Michelle, in the hallway just outside of [facility]. CPR is in progress and patient and Michelle is tearful. She states that it was expected that he would soon because of the CHF that he had been dealling with. She was explaining about the events that led to his arrival in the ER when an ER clinician came and gave her the news that her son had with an explanation of what had occurred based on the events and the information given. We go into [facility] and family join and I provided prayer. I alerted security when the patient's brother Vincent began yelling, swearing and physically waving his arms around. He stated, "I need to f get out of here." He went the wrong direction and so as I attempted to assist him in finding an exit and he stated,"I don't need an F escort." I made a few [place] of with the patient's fingerprints for his two younger children and his mother. I gave the sister, Eli and Michelle the list of homes and got water for a couple of family members. The family showed signs of being comforted.
[2024-02-25] MEDS ORDERED: EPINEPhrine HCl 0.1 MG/ML 10ML SYR IV ONE (14:22)
[2024-02-25] MEDS ORDERED: Sodium Bicarb 8.4% 1 MEQ/ML 50 ML Vial IV ONE (14:22)
== END 2024-02-25 13:53 ==
LOC: ER 09:54
DX: I46.9 Cardiac arrest, cause unspecified (principal); I50.9 Heart failure, unspecified; Z79.02 Long term (current) use of antithrombotics/antiplatelets; Z79.899 Other long term (current) drug therapy
CPT/HCPCS: 31500; 96374-59; 96375-59; 99285-25